=== PATIENT | female | born 1955 ===

== ENCOUNTER → 2024-10-06 | Outpatient (REF) | payer MEDICARE ==
[2024-10-06 12:31] LABS: INR 0.9
[2024-10-14 18:11] LABS: URINE COTININE LEVEL <10 ng/mL (.); URINE NICOTINE LEVEL <10 ng/mL (.)
== END ==
LOC: M LAB REF 12:06
PROVIDERS: ATTEND Internal Medicine
DX: Z01.818 Encounter for other preprocedural examination (principal)
CPT/HCPCS: 85610; 85730; G0480